=== PATIENT | female | born 1935 | race Caucasian/White ===

== ENCOUNTER 2018-10-26 18:37 | Emergency (ER) | payer MEDICARE, OTHER ==
[~2018-10-26] VITALS: Ht 160 cm; Wt 65.9 kg
[~2018-10-26 18:37] MED LIST: ALPR0.254 PO; ASPI-817 PO; ATOR20TA38 PO; CLOP75TA27 PO; ERGO500013 PO; FER325 PO; FURO40TA4 PO; LOSA1TAB22 PO; NITR0.4T32 SL; ONDA4TAB8 PO; PROP20TA4 PO; SERT50TA6 PO; SITA1TAB5 PO; VERA240C2 PO
[2018-10-26 18:57] VITALS: Ht 160 cm; Wt 65.9 kg
[2018-10-26] MEDS ORDERED: morphine 2 MG INJ IV STA (19:47)
[2018-10-26] MEDS ORDERED: TRAM50TA2 PO (22:17)
--- NOTE | 2018-10-26 22:18 | ERD ---
ER Documentation Chief Complaint Chief Complaint fall today down 1 stair onto concrete, no KO. R shoulder/L hip pain HPI 83-year-old female presenting after a fall with complaints of right shoulder pain and left lower back pain. Patient states that she was going up one step in her backyard when she lost her footing and fell onto her right side. Currently she complains of right shoulder pain that has been improving since the fall. Now she is able to move her shoulder more than she was able to before. She denies any head injury, hip pain, chest pain, shortness of breath, abdominal pain, weakness or numbness in her extremities. Although she did not fall on her left side, she is having some left lower back pain, worse with movement, and 9 out of 10, improved with not moving in certain positions. She describes it as an aching, sharp pain. The pain in her right arm is below her shoulder joint laterally, worse with touch, with no alleviating factors. ROS All systems reviewed and are negative except as per history of present illness. Medications Home Meds Active Scripts Tramadol HCl (Tramadol HCl) 50 Mg Tablet, 50 MG PO Q6 PRN for PAIN, #20 TAB Prov:JAQUELIN STEWART MD 10/26/18 Ondansetron Hcl* (Zofran*) 4 Mg Tablet, 4 MG PO Q8H PRN for NAUSEA AND/OR VOMITING, #30 TAB Prov:KAROLINA ROB MD 07/16/18 Reported Medications Atorvastatin Calcium* (Atorvastatin Calcium*) 20 Mg Tablet, 20 MG PO QHS, #30 TAB 07/16/18 Ferrous Sulfate* (Ferrous Sulfate*) 325 Mg Tabec, 325 MG PO BID, TAB 07/16/18 Aspirin* (Aspirin* EC) 81 Mg Tablet.dr, 81 MG PO DAILY, TAB 07/16/18 Ferrous Sulfate* (Ferrous Sulfate*) 325 Mg Tabec, 325 MG PO BID, TAB 07/16/18 Sitagliptin Phos/Metformin HCl (Janumet 50-1,000 mg Tablet) 1 Each Tablet, 1 EACH PO BID, TAB 07/16/18 Sertraline Hcl* (Sertraline Hcl*) 50 Mg Tablet, 50 MG PO DAILY, #30 TAB 07/16/18 Clopidogrel Bisulfate (Clopidogrel) 75 Mg Tablet, 75 MG PO DAILY, #30 TAB 07/16/18 Losartan-Hydrochlorothiazide (Losartan-HCTZ) 50-12.5 Mg Tab, 1 TAB PO DAILY, TAB 07/16/18 Furosemide* (Furosemide*) 40 Mg Tablet, 40 MG PO DAILY, TAB 07/16/18 Propranolol Hcl* (Propranolol Hcl*) 20 Mg Tablet, 20 MG PO DAILY, TAB 07/16/18 Ergocalciferol (Vitamin D2) (VITAMIN D2) 50,000 Unit Capsule, 53964 UNIT PO WEEKLY, CAP 07/16/18 Verapamil Hcl* (Verapamil ER*) 240 Mg Cap24h.pel, 240 MG PO DAILY, CAP 07/16/18 Nitroglycerin* (Nitroglycerin* SL) 0.4 Mg Tab.subl, 0.4 MG SL Q5MIN PRN for CHEST PAIN, BOTTLE 07/16/18 Alprazolam* (Alprazolam*) 0.25 Mg Tablet, 0.25 MG PO DAILY PRN for ANXIETY, TAB 07/16/18 Allergies Allergies: Coded Allergies: No Known Drug Allergies (Verified Allergy, Mild, 12/22/10) PMhx/Soc History of Surgery: Yes (cardiac stent x 2; hysterectomy, appendectomy) Anesthesia Reaction: No Hx Neurological Disorder: No Hx Respiratory Disorders: No Hx Cardiac Disorders: Yes (htn, hyperlipidemia, DM) Hx Psychiatric Problems: No Hx Miscellaneous Medical Probl: No Hx Alcohol Use: No Hx Substance Use: No Hx Tobacco Use: No Smoking Status: Never smoker FmHx Family History: No diabetes Physical Exam Vitals Vital Signs Date Temp Pulse Resp B/P (MAP) Pulse Ox O2 O2 Flow FiO2 Time Delivery Rate 10/26/18 73 18 134/41 99 Room Air 22:27 (72) 10/26/18 76 18 147/52 98 Room Air 21:49 (83) 10/26/18 75 18 156/68 99 Room Air 19:41 (97) 10/26/18 98.8 78 18 171/67 98 18:57 (101) Physical Exam INITIAL VITAL SIGNS: Reviewed by me GENERAL: Well developed, well nourished. HEAD: Atraumatic. No facial TTP. EYES: EOMI. PERRL. No subconjunctival hemorrhage ENT: Nose non-tender. No septal hematoma. Nasopharynx and oropharynx clear. No dental, lip, or tongue injury NECK: No cervical spine TTP. Full range of motion RESPIRATORY: Clear to auscultation bilaterally. No increased work of breathing. CV: Regular rate and rhythm. Cap refill <2sec. 2+ Radial and 2+ dorsalis pedis pulses. ABDOMEN: Soft, non-distended, non-tender. No guarding or rebound. Normal active bowel sounds. BACK: No midline thoracic or lumbar spine TTP. Left lumbar paraspinal muscle tenderness to palpation. No CVA tenderness. EXTREMITIES: Normal to inspection. No deformities seen. No joint swelling. Full ROM in extremities. Mild tenderness to palpation of the lateral upper arm below the shoulder joint. No joint tenderness. Pelvis is stable. No hip tenderness.. SKIN: Warm, dry, pink. NEUROLOGIC: A&Ox4. No facial asymmetry. Motor and sensory function intact to all 4 extremities. Results 24 hrs Current Medications Medications Dose Sig/Lucille Start Time Status Last (Trade) Ordered Route PRN Stop Time Admin Dose Reason Admin Morphine 2 mg ONCE STAT 10/26/18 DC 10/26/18 Sulfate IV 19:47 19:53 (morphine) 10/26/18 19:48 Procedures/MDM EMERGENT LABS AND DIAGNOSTIC STUDIES: Radiology Results as interpreted by Radiology below were reviewed by Misti Stewart MD: X-ray pelvis shows no acute abnormalities X-ray right shoulder shows no acute abnormalities CT abdomen and pelvis: IMPRESSION: 1. Severe atherosclerosis of the abdominal aorta and all of the visible branch vessels. Abdominal ischemia should be considered in the differential of abdominal pain in this patient. 2. Severe coronary artery atherosclerosis. 3. 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 4. Bilateral renal cysts with previous complication of an upper pole right r enal cyst. Malignancy is considered unlikely; however, correlation with sonographic evaluation of this cyst might be considered. 5. 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 6. 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 7. No current CT evidence of bowel obstruction or bowel perforation. 8. Mild sigmoid diverticulosis without evidence of diverticulitis. 9. No CT evidence of acute traumatic abnormality in the abdomen or pelvis. Initial Nursing notes reviewed. Previous Medical Records requested via the Electronic Health Record. EMERGENCY DEPARTMENT COURSE / MEDICAL DECISION MAKING: Patient is presenting after a ground-level fall with complaints of right-sided shoulder pain and arm pain as well as left lower back pain. Imaging was done showing no evidence of shoulder fracture, pelvic fracture and no evidence of spinal injury. Her pain was treated here with improvement of her symptoms. She was able to ambulate in the ER without any severe pain. She was advised to take [id number] analgesics for pain control and a prescription for tramadol was given for pain is severe. If she does have uncontrolled pain, she was encouraged to return to the ER immediately. Follow-up with PCP was recommended within the next 2 to 3 days. Patient's blood pressure was elevated (>120/80) but appears stable without evidence of hypertensive emergency or urgency. The patient was counseled about the risks of hypertension and urged to pursue outpatient monitoring and therapy within a week with their primary care physician. Departure Diagnosis: Primary Impression: Fall with no significant injury Encounter type: initial encounter Qualified Codes: W19.XXXA - Unspecified fall, initial encounter Additional Impressions: Strain of muscle, fascia and tendon of lower back, initial enc... Contusion of right upper arm Encounter type: initial encounter Qualified Codes: S40.021A - Contusion of right upper arm, initial encounter Condition: Stable Patient Instructions: Back Sprain/Strain, Contusion, Upper Extremity JAQUELIN STEWART MD October 26, 2018 22:18
[2018-10-26 22:27] VITALS: BP 134/41; PULSE 73; RESP 18
== END 2018-10-26 22:30 | disposition home or self-care (01) ==
LOC: E/R 18:37
DX: S40.021A Contusion of right upper arm, initial encounter (principal); S39.012A Strain of muscle, fascia and tendon of lower back, initial encounter; I10 Essential (primary) hypertension; E11.9 Type 2 diabetes mellitus without complications; W18.39XA Other fall on same level, initial encounter; Y92.9 Unspecified place or not applicable; Z79.82 Long term (current) use of aspirin
CPT/HCPCS: 72170; 73030; 74176; 96374; 99285; J2270